=== PATIENT | female | born 1960 | race African-American/Black ===

== ENCOUNTER 2020-09-12 12:30 | Outpatient (REF) | payer OTHER, SELFPAY | END 2020-09-12 12:31 | disposition home or self-care (01) | LOC: HO.LAB 12:30 | PROVIDERS: Visit Provider Internal Medicine | DX: Z20.828 Contact with and (suspected) exposure to other viral communicable diseases (principal) | CPT/HCPCS: C9803; U0003 ==

== ENCOUNTER → 2021-10-25 12:55 | Outpatient (BNVA) | payer OTHER, SELFPAY | PROVIDERS: PCP Nurse Practitioner Family; Visit Provider Nurse Practitioner Family | DX: M79.7 Fibromyalgia (principal) | CPT/HCPCS: 99212 ==

== ENCOUNTER 2022-08-27 11:06 | Outpatient (REF) | payer OTHER, SELFPAY ==
--- NOTE | ~2022-08-27 | MM_ITS ---
EXAMINATION: MM SCREENING DIGITAL BREAST TOMOSYNTHESIS, BILATERAL CLINICAL INFORMATION: Screening. Asymptomatic. The lifetime risk of breast cancer based on the Tyrer-Cuzick Model is 4%. COMPARISON: Mammography: 03/10/2019, 02/11/2018, 02/06/2017 TECHNIQUE: Digital breast tomosynthesis is performed in both the craniocaudal and mediolateral oblique views along with computer-aided detection (CAD). Synthesized 2D images are generated from the tomosynthesis. FINDINGS: There are scattered areas of fibroglandular density (ACR BI-RADS breast composition Category b). There are no significant masses, abnormal calcifications, or other abnormalities. Parenchymal pattern is similar to prior studies. There is no developing density or architectural abnormality. The axilla and skin contours are unremarkable. No significant changes. MM/MM tomosynthesis screening BI IMPRESSION: No mammographic evidence of malignancy. ASSESSMENT: BI-RADS 1: Negative RECOMMENDATION: Routine annual mammography screening. This patient's information was entered into a reminder system with a target due date for their next mammogram.
== END 2022-08-27 11:07 | disposition home or self-care (01) ==
LOC: HO.MAMMO 11:06
PROVIDERS: PCP General Practice; Visit Provider General Practice
DX: Z12.31 Encounter for screening mammogram for malignant neoplasm of breast (principal)
CPT/HCPCS: 77063; 77067

== ENCOUNTER 2024-01-03 16:34 | Outpatient (REF) | payer MEDICARE, SELFPAY ==
[2024-01-03 17:35] LABS: MANUAL DIFF FLAG NO
[2024-01-03 17:39] LABS: Basophils Percent Auto 0.2 % (0-2); Eosinophils Absolute Auto 0.2 X10*3/uL (0.0-0.4); Eosinophils Percent Auto 2.6 % (0-4); Hematocrit 36.4 % (37.0-47.0); Hemoglobin 11.8 g/dl (12.0-16.0); Imm Gran Abs Auto 0.02 X10*3/uL (0.00-0.03); Imm Gran Pct Auto 0.2 % (0.0-0.4); Lymphocytes Absolute Auto 3.8 X10*3/uL (1.2-4.9); Lymphocytes Percent Auto 46.2 % (20-40); Mean Corpuscular HGB Conc 32.4 g/dl (31.0-35.0); Mean Corpuscular Hemoglobin 30.2 pg (27.0-33.0); Mean Corpuscular Volume 93.1 fL (80.0-98.0); Mean Platelet Volume 11.1 fL (9.4-12.3); Monocytes Absolute Auto 0.4 X10*3/uL (0.1-1.2); Monocytes Percent Auto 5.4 % (2-11); Neutrophils Absolute Auto 3.7 x10*3/uL (2.0-8.3); Neutrophils Percent Auto 45.4 % (45-73); Platelet Count 288 X10*3/uL (160-400); Red Blood Count 3.91 X10*6/uL (4.20-5.50); Red Cell Distribution Width 12.8 % (11.0-16.0); White Blood Count 8.2 X10*3/uL (4.8-10.8)
[2024-01-03 17:59] LABS: Alanine Aminotransferase 26 U/L (0-31); Albumin Level 4.7 g/dL (3.5-5.0); Alkaline Phosphatase 101 U/L (39-117); Anion Gap 12 (12-20); Aspartate Amino Transferase 23 U/L (5-31); Bilirubin Total 0.4 mg/dL (0.0-1.0); Blood Urea Nitrogen 15 mg/dL (9-16); Calcium 10.2 mg/dL (8.4-10.2); Carbon Dioxide 29 mmol/L (22-29); Chloride 103 mmol/L (96-108); Cholesterol 111 mg/dL (<200); Estimated Glomerular Filt Rate > 60; Glucose Random 112 mg/dL (60-115); HDL Cholesterol 57 mg/dL (>40); LDL Cholesterol Calculated 46 mg/dL (<100); Potassium 4.1 mmol/L (3.3-5.1); Sodium 140 mmol/L (135-145); Total Protein 8.1 g/dL (6.5-8.0); Triglycerides 42 mg/dL (<150)
[2024-01-03 18:15] LABS: Creatinine Urine 113.54 mg/dL; Microalbum/Creatinine Ratio Ur 54.6 ug/mg cr (<30); TSH reflex Free T4 1.34 uIU/mL (0.32-4.0)
== END 2024-01-03 16:35 | disposition home or self-care (01) ==
LOC: HO.HHCL 16:34
PROVIDERS: Visit Provider General Practice
DX: E11.9 Type 2 diabetes mellitus without complications (principal)
CPT/HCPCS: 36415; 80053; 80061; 82043; 82570; 84443; 85025

== ENCOUNTER 2024-03-18 14:09 | Outpatient (REF) | payer MEDICARE, SELFPAY | END 2024-03-18 14:10 | disposition home or self-care (01) | LOC: HO.MAMMO 14:09 | PROVIDERS: PCP General Practice; Visit Provider General Practice | DX: Z12.31 Encounter for screening mammogram for malignant neoplasm of breast (principal) | CPT/HCPCS: 77063; 77067 ==

== ENCOUNTER → 2024-03-18 14:30 | Outpatient (BNV) | payer MEDICARE, SELFPAY | PROVIDERS: PCP General Practice; Visit Provider Radiology Diagnostic Radiology | DX: Z12.31 Encounter for screening mammogram for malignant neoplasm of breast (principal) | CPT/HCPCS: 77063; 77067 ==

== ENCOUNTER 2024-08-06 16:17 | Outpatient (REF) | payer MEDICARE, SELFPAY ==
[2024-08-06 17:37] LABS: MANUAL DIFF FLAG NO
[2024-08-06 17:58] LABS: Basophils Percent Auto 0.3 % (0-2); Eosinophils Absolute Auto 0.3 X10*3/uL (0.0-0.4); Eosinophils Percent Auto 2.9 % (0-4); Hematocrit 35.8 % (37.0-47.0); Hemoglobin 11.9 g/dl (12.0-16.0); Imm Gran Abs Auto 0.03 X10*3/uL (0.00-0.03); Imm Gran Pct Auto 0.3 % (0.0-0.4); Lymphocytes Absolute Auto 3.8 X10*3/uL (1.2-4.9); Lymphocytes Percent Auto 44.4 % (20-40); Mean Corpuscular HGB Conc 33.2 g/dl (31.0-35.0); Mean Corpuscular Hemoglobin 30.5 pg (27.0-33.0); Mean Corpuscular Volume 91.8 fL (80.0-98.0); Mean Platelet Volume 11.4 fL (9.4-12.3); Monocytes Absolute Auto 0.6 X10*3/uL (0.1-1.2); Monocytes Percent Auto 6.5 % (2-11); Neutrophils Absolute Auto 3.9 x10*3/uL (2.0-8.3); Neutrophils Percent Auto 45.6 % (45-73); Platelet Count 319 X10*3/uL (160-400); Red Cell Distribution Width 12.5 % (11.0-16.0); White Blood Count 8.6 X10*3/uL (4.8-10.8)
[2024-08-06 18:49] LABS: Alanine Aminotransferase 34 U/L (0-31); Albumin Level 4.7 g/dL (3.5-5.0); Alkaline Phosphatase 115 U/L (39-117); Anion Gap 12 (12-20); Aspartate Amino Transferase 25 U/L (5-31); Bilirubin Total 0.4 mg/dL (0.0-1.0); Blood Urea Nitrogen 17 mg/dL (9-16); Calcium 9.9 mg/dL (8.4-10.2); Carbon Dioxide 28 mmol/L (22-29); Chloride 103 mmol/L (96-108); Estimated Glomerular Filt Rate > 60; Folate 8.4 ng/mL (> or = 4.0); Glucose Random 135 mg/dL (60-115); Lipase 33 U/L (8-78); Potassium 4.5 mmol/L (3.3-5.1); Sodium 138 mmol/L (135-145); Vitamin B12 1234 pg/mL (200-900)
[2024-08-06 18:57] LABS: TSH reflex Free T4 1.38 uIU/mL (0.32-4.0)
== END 2024-08-06 16:18 | disposition home or self-care (01) ==
LOC: HO.HHCL 16:17
PROVIDERS: Visit Provider General Practice
DX: D50.9 Iron deficiency anemia, unspecified (principal); E11.9 Type 2 diabetes mellitus without complications; K58.9 Irritable bowel syndrome, unspecified
CPT/HCPCS: 36415; 80053; 82607; 82746; 83690; 84443; 85025

== ENCOUNTER 2025-04-20 15:10 | Outpatient (REF) | payer OTHER, SELFPAY ==
--- NOTE | ~2025-04-20 | XR_ITS ---
EXAMINATION: XR CHEST CLINICAL INFORMATION: Anterior chest wall pain without history of trauma COMPARISON: 02/20/2018. TECHNIQUE: 2 views of the chest were obtained. FINDINGS: The cardiac, hilar, and mediastinal contours are normal. The lungs are clear bilaterally. There is no pneumothorax or pleural effusion. There is no focal osseous or soft tissue abnormality. Mild degenerative changes of the spine with a minimal S-shaped thoracic scoliosis. XR/XR chest 2V IMPRESSION: No acute findings of the thorax. No active pulmonary disease. Electronically signed by: Zuhair Kaur MD 04/20/2025 03:48 PM EDT
--- NOTE | ~2025-04-20 | XR_ITS ---
EXAMINATION: XR SHOULDER, RIGHT CLINICAL INFORMATION: Right shoulder pain with crepitance at AC joint COMPARISON: None available. TECHNIQUE: AP external rotation, Grashey, scapular Y, and axillary views of the right shoulder. FINDINGS: There is no AC joint separation. There is osteophyte formation involving the AC joint. There is a corticated ossification cephalad to the AC joint, probably within the superior acromioclavicular ligament. The glenohumeral joint is intact. There is a short curvilinear calcification lateral to the superior humeral head, possibly marginal osteophyte. 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 Electronically signed by: Mike Landry MD 04/20/2025 03:50 PM EDT
--- OUTSIDE RECORDS SUMMARY | 2025-04-20 16:00 | XMS_ITS | Clinical Summary ---
Author Organization [facility] Address [address] [place] [address] Care Team Providers Care Manager Hair Name Role Phone Unavailable Primary Care Provider Unavailabl e Source Comments PLEASE NOTE, if this patient is a minor, it may be UNLAWFUL to discuss sensitive information that is contained in these records (such as FAMILY PLANNING, MENTAL HEALTH or SUBSTANCE ABUSE) with the minor patient's parent or other person without the patient's specific authorization.[facility] Medications No known medications Social History Tobacco Use Types Packs/Day Years Used Date Smoking Tobacco: Never Passive Smoke Exposure: Never Smokeless Tobacco: Never Tobacco Cessation:Counseling Given: Not Answered Social Connections Answer Date Recorded Connectedness 0 06/04/2024 Financial Resource Strain Answer Date R ecorded Financial Resource Strain 0 2022 Stress Answer Date Recorded Stress 0 09/19/2023 Physical Activity Answer Date Recorded Physical Activity 0 09/19/2023 Food Insecurity Answer Date Recorded Food 0 06/18/2024 Transportation Needs Answer Date Record ed Transportation 0 09/19/2023 Housing Stability Answer Date Recorded Housing 0 09/19/2023 Safety and Environment Answer Date Iftikhar rded Safety 0 09/19/2023 Utilities Answer Date Recorded Utilities 0 09/19/2023 Employment Answer Date Recorded Stress 0 06/04/2024 Comments Unknown Sex and Gender Information Value Date Recorded Sex Assigned at Not on file Legal Sex Female 7:54 AM PST Gender Identity Not on file Sexual Orientation Not on file Last Filed Vital Signs Vital Sign Reading Time Taken Comments Blood Pressure 128/82 10/03/2023 4:29 PM EST Pulse 76 10/03/2023 4:29 PM EST Temperature - - Respiratory Rate - - Oxygen Saturation - - Inhaled Oxygen Concentration - - Weight - - Height - - Body Mass Index - - Plan of Treatment Health Maintenance Due Date Last Done Comments Dental FMX/Pano 1958 Hepatitis C Screening 1958 Lipid Screening [address] Colonography 2003 Colonoscopy 2003 Colorectal Cancer Screening 2003 FIT/gFOBT 2003 Fecal DNA 2003 Flexible Sigmoidoscopy 2003 Imm-Pneumococcal 50+ (1 of 1 - PCV) 2008 Imm-Zoster, Recombinant (1 of 2) 2008 Breast Cancer Screening (Mammogram) 03/11/2021 03/11/2019, 02/12/2018 Imm-DTaP/Tdap/Td (2 - Td or Tdap) 04/06/2023 013, 09/23/2002 Diabetes Screening 08/31/2023 08/31/2020 Bone Density Screening 2023 Falls Prevention 2023 [id number] ( season) 2024 Alcohol and Drug Screen 09/23/2024 Depression Annual Screen 09/23/2024 Hypertension Screening (#1) 10/02/2024 Dental Examination 10/05/2024 10/03/2023 Dental Perio Charting 10/05/2024 10/03/2023 Dental Prophy 10/05/2024 10/03/2023 Imm-Influenza (#1) 2025 07/08/2019, 0 10/28/2018, 08/28/2017, Additional history exists Procedures Procedure Name Priority Date/Time Associated Diagnosis Comments COMP PERIODONTAL EVALUATION - NEW/EST PATIENT Routine 10/03/2023 4:20 PM EST Encounter for dental examination Full PROPHYLAXIS - ADULT Routine 10/03/2023 4:20 PM EST Encounter for dental examination Full COMP ORAL EVALUATION - NEW/ESTABLISHED PATIENT Routine 10/03/2023 4:20 PM EST Encounter for dental examination from Last 3 Months or Most Recently Relevant to Health Maintenance Insurance [employer]
--- OUTSIDE RECORDS SUMMARY | 2025-04-20 16:00 | XMS_ITS | Encounter Summary ---
Author Organization [facility] [employer] Address [address] [facility] [address] [place] [address] Care Team Providers Care Aircraft Servicer Name Role Phone Indy Ricci MD Primary Care Provider [phone] Jamshid Ryan Unavailable Unavailable Encounter Details Date Type Department Care Team (Latest Contact Info) Description 04/20/2025 Travel Social History Tobacco Use Types Packs/Day Years Used Date Smoking Tobacco: Never Passive Smoke Exposure: Never Smokeless Tobacco: Never Comments:Patient unsure if s he has been told she has cataracts or glaucoma Alcohol Use Standard Drinks/Week Comments Never 0 (1 standard drink = 0.6 oz pur e alcohol) Depression Answer Date Recorded Patient Health Questionnaire-9 Score 8 03/03/2024 Patient Health Questionnaire-9 Score 8 03/03/2024 Last PHQ-9: Questionnaire Data Not on file 0 03/03/2024 Housing Stability Answer Date Recorded What is your housing situation today? I have fara melgoza 08/06/[address] you li ve. Do you have problems with any of the following? None of the above 08/06/2024 Food Insecurity Answer Date Recorded Within the past 12 months, y ou worried that your food would run out before you got money to buy more: Never True 08/06/2024 Within the past 12 months,th e food you bought just didn't last and you didn't have enough money to get more: Never True Transportation Answer Date Recorded In the past 12 months, has l ack of transportation kept you from medical appts, meetings, work or from getting things needed for daily living? No 08/06/2024 Utilities Answer Date Recorded In the past 12 months, has t he electric, gas, oil or water company threatened to shut off services in your home? No 08/06/2024 Depression Answer Date Recorded Patient Health Questionnaire-2 Score 5 03/03/2024 Internet Access Answer Date Recorded Internet Access Q1 Yes 08/06/2024 Internet Access Q2 Not on file 08/06/2024 Comments Unknown Sex and Gender Information Value Date Recorded Sex Assigned at Female 07/23/2022 10:20 AM EDT Legal Sex Female 10:20 AM EDT Gender Identity Female 07/23/2022 10:20 AM EDT Sexual Orientation Choose not to disclose 2021 10:20 AM EDT documented as of this encounter Plan of Treatment Upcoming Encounters Date Type Department Care Team (Late st Contact Info) Description 05/07/2025 2:15 PM EDT Office Visit [facility] [address] [place] [address] Indy Ricci MD [address] [place] [phone] documented as of this encounter Visit Diagnoses Not on filedocumented in this encounter Additional Health Concerns Assessment Noted Time PHQ-9 Depression Total Score: 8 03/03/20 24 11:35 AM EDT documented as of this encounter Care Teams Aircraft Servicer Relationship Specialty Start Date End Date Indy Ricci MD [address] [place] [id number] PCP - General Family Medicine 05/23/20 Jamshid Ryan FNP [address] [place] [id number] Nurse Practitioner Family Medicine 08/19/23 documented as of this encounter
--- OUTSIDE RECORDS SUMMARY | 2025-04-20 16:00 | XMS_ITS | Clinical Summary ---
Author Organization [facility] Address [address] [place] [id number] Care Team Providers Care Parking Garage Manager Name Role Phone Jamshid Ryan [facility] Primary Care Provider Allergies No known active allergies Medications zolpidem (Ambien) 10 MG tablet Take 1 tablet by mouth at bed time Active venlafaxine XR (EFFEXOR-XR) 37.5 MG 24 hr capsule Take 1 capsule by mouth 1 (one) time each day Active traZODone (DESYREL) 150 MG tablet Take 1 tablet by mouth at bed time Active simethicone (MYLICON,GAS-X) 125 MG capsule Take 1 capsule by mouth Active simethicone (MYLICON) 125 MG chewable tablet Chew 1 tablet 1 (one) time Active pantoprazole (PROTONIX) 40 MG EC tablet Comments: Filled Date: Apr 15 2017 12:00AM Duration: 30 Active omeprazole (PriLOSEC) [address] capsule Take 1 capsule by mouth 2 (two) times a day Active losartan (COZAAR) 100 MG tablet Comments: Filled Date: Mar 09 2018 12:00AM Patient Notes: TAKE 1 TABLET EVERY MORNING Duration: 30 02/19/2018 Active linaCLOtide (Linzess) 290 MCG capsule Take 1 capsule by mouth 1 (one) time each day Active enalapril (VASOTEC) 10 MG tablet Take 1 tablet by mouth 1 (one) time each day Active DULoxetine (Cymbalta) [address] capsule Take 2 capsules by mouth 1 (one) time each day Active cyclobenzaprine (FLEXERIL) 10 MG tablet Comments: Filled Date: Feb 11 2017 12:00AM Duration: 30 Active cholecalciferol (VITAMIN D-3) 25 MCG (1000 UT) capsule Take 1 capsule by mouth 1 (one) time each day Active clonazePAM (KlonoPIN) 0.5 MG tablet Take 1 tablet by mouth 1 (one) time each day Active aspirin (ST VANESSA) 81 MG EC tablet Take 1 tablet by mouth 1 (one) time each day Active amLODIPine (NORVASC) 10 MG tablet Take 1 tablet by mouth 1 (one) time each day Active albuterol HFA (ProAir HFA) 108 (90 Base) MCG/ACT inhaler Inhale 2 puffs Active Active Problems Problem Noted Date Diagnosed Date Proteinuria 02/15/2020 Essential hypertension 02/15/2020 Chronic kidney disease stage 3 02/15/2020 Anemia 02/15/2020 Family History Medical History Relation Comments Heart disease Father Hypertension Father Hypertension Mother Hypertension Sibling Relation Status Comments Father Mother Alive Sibling Social History Tobacco Use Types Packs/Day Years Used Date Smoking Tobacco: Never Alcohol Use Standard Drinks/Week Comments No 0 (1 standard drink = 0.6 oz pur e alcohol) Comments Unknown Sex and Gender Information Value Date Recorded Sex Assigned at Not on file Legal Sex Female 4:35 PM EST Gender Identity Not on file Sexual Orientation Not on file Last Filed Vital Signs Vital Sign Reading Time Taken Comments Blood Pressure 138/70 04/07/2018 12:00 PM EDT Pulse - - Temperature - - Respiratory Rate - - Oxygen Saturation - - Inhaled Oxygen Concentration - - Weight 70.3 kg (155 lb) 04/07/2018 12:00 PM EDT Height 157.5 cm (5' 2 ) 04/07/2018 12:00 PM EDT Body Mass Index 28.35 04/07/2018 12:00 PM EDT Plan of Treatment Health Maintenance Due Date Last Done Comments Breast Cancer Screening 1958 Pneumococcal Vaccine: 50+ Ye ars (1 of 2 - PCV) 1977 Colorectal Cancer Screening: Annual FOBT 2007 Colorectal Cancer Screening: Colonoscopy 2007 Colorectal Cancer Screening: Sigmoidoscopy 2007 Influenza Vaccine (#1) 2025 Hepatitis B Vaccine Aged Out No longe r eligible based on patient's age to complete this topic Insurance [facility] [place] [id number] Care Teams Parking Garage Manager Relationship Specialty Start Date End Date Jamshid Ryan FNP [address] [place] [address], [address] [place] [address] PCP - General 07/28/19
== END 2025-04-20 15:11 | disposition home or self-care (01) ==
LOC: HO.HHCX 15:10
PROVIDERS: Visit Provider Internal Medicine
DX: M25.511 Pain in right shoulder (principal); G89.29 Other chronic pain; R07.89 Other chest pain; M24.811 Other specific joint derangements of right shoulder, not elsewhere classified
CPT/HCPCS: 71046; 73030

== ENCOUNTER → 2025-04-20 15:10 | Outpatient (BNV) | payer OTHER, SELFPAY | PROVIDERS: Visit Provider Radiology Diagnostic Radiology | DX: R07.89 Other chest pain (principal); M19.011 Primary osteoarthritis, right shoulder | CPT/HCPCS: 71046 ==

== ENCOUNTER 2025-08-06 11:52 | Outpatient (REF) | payer OTHER, SELFPAY ==
--- NOTE | ~2025-08-06 | MM_ITS ---
EXAMINATION: MM SCREENING DIGITAL BREAST TOMOSYNTHESIS, BILATERAL CLINICAL INFORMATION: Screening. Asymptomatic. COMPARISON: Mammography: Comparison is made with available priors TECHNIQUE: Digital breast mammography with tomosynthesis is performed in both the craniocaudal and mediolateral oblique views along with computer-aided detection (CAD). FINDINGS: There are scattered areas of fibroglandular density. There are no significant masses, abnormal calcifications, or other abnormalities. MM/MM tomosynthesis screening BI IMPRESSION: No mammographic evidence of malignancy. ASSESSMENT: BI-RADS Category 1: Negative RECOMMENDATION: Routine annual mammography screening. 1 year F/U This examination should not preclude the clinical evaluation of a suspicious palpable abnormality. This patient's information was entered into a reminder system with a target due date for their next mammogram. Electronically signed by: Tess Marcano DO 08/10/2025 09:38 AM ZOHRA
== END 2025-08-06 11:53 | disposition home or self-care (01) ==
LOC: HO.MAMMO 11:52
PROVIDERS: PCP General Practice; Visit Provider General Practice
DX: Z12.31 Encounter for screening mammogram for malignant neoplasm of breast (principal)
CPT/HCPCS: 77063; 77067

== ENCOUNTER → 2025-08-06 12:30 | Outpatient (BNV) | payer OTHER, SELFPAY | PROVIDERS: PCP General Practice; Visit Provider Internal Medicine | DX: Z12.31 Encounter for screening mammogram for malignant neoplasm of breast (principal) | CPT/HCPCS: 77063; 77067 ==